=== PATIENT | female | born 1980 | race Hispanic/Latino ===

== ENCOUNTER 2018-06-19 21:01 | Emergency (ER) | payer BC ==
[2018-06-19] MEDS ORDERED: Ketorolac Tromethamine 30 MG/ML VIAL ONE (21:23)
--- NOTE | 2018-06-19 21:39 | RAD ---
2 views right shoulder: 06/19/2018 COMPARISON: None HISTORY: Injury, trauma, pain FINDINGS: There is no widening of the acromioclavicular or coracoclavicular interspace. No displaced fracture or evidence of dislocation is seen. IMPRESSION: No acute findings.
== END 2018-06-19 21:56 | disposition home or self-care (01) ==
LOC: SCSER 21:01
DX: M25.511 Pain in right shoulder (principal); M54.2 Cervicalgia
CPT/HCPCS: 96372; J1885

== ENCOUNTER 2018-12-26 16:24 | Emergency (ER) | payer BC ==
[2018-12-26 16:49] LABS: #Lymphocytes 1.3 thou/uL (1.20-3.40); #Monocytes 0.4 thou/uL (0.11-0.59); #Neutrophils 9.3 thou/uL (1.40-6.50); %Basophils 0.3 % (0.0-1.0); %Eosinophils 0.4 % (0.0-10.0); %Lymphocytes 11.8 % (21.0-51.0); %Monocytes 3.6 % (0.0-10.0); Hemoglobin 14.1 g/dL (12.0-16.0); Mean Corpuscular HGB CONC 33.3 g/dL (32.0-36.0); Mean Corpuscular Hemoglobin 27.9 pg (27.0-31.0); Mean Corpuscular Volume 83.7 fL (78.0-98.0); Mean Platelet Volume 7.2 fL (7.4-10.4); Platelet Count 376 thou/uL (130-400); RBC Distribution Width 11.6 % (11.5-14.5); Red Blood Cell (RBC) Count 5.04 mill/uL (4.20-5.40); White Blood Cell (WBC) Count 11.1 thou/uL (4.8-10.8)
[2018-12-26 17:16] LABS: ALT (SGPT) 45 U/L (8-55); AST (SGOT) 23 U/L (5-34); Albumin 4.7 g/dL (3.5-5.0); Alkaline Phosphatase 94 U/L (40-110); Anion Gap 13 mmol/L (10-20); BUN (Urea Nitrogen) 10 mg/dL (7.0-18.7); Bilirubin, Total 0.9 mg/dL (0.2-1.2); Calc. Creatinine Clearance 0 mL/min (70-130); Calcium 9.7 mg/dL (7.8-10.44); Carbon Dioxide 26 mmol/L (22-29); Chloride 100 mmol/L (98-107); Estimated GFR-MDRD 76; Globulin 4.2 g/dL (2.4-3.5); Glucose 189 mg/dL (70-105); Potassium 4.2 mmol/L (3.5-5.1); Protein, Total 8.9 g/dL (6.0-8.3); Sodium 135 mmol/L (136-145)
[2018-12-26 17:28] LABS: BHCG - Serum Negative (NEGATIVE); Pregs Control Background? CLEAR/WHITE (CLR/WHITE); Pregs Control Bar Appear? YES (CONTROL BAR)
[2018-12-26] MEDS ORDERED: Ondansetron PF 4 MG/2 ML Vial ONE (17:57)
[2018-12-26] MEDS ORDERED: Morphine 4 MG/ML VIAL ONE (17:57)
[2018-12-26 18:42] LABS: Bilirubin Negative (Negative); Blood, Urine Trace (Negative); Clarity Clear (Clear); Glucose, Urine (Dipstick) Normal (Negative); Leukocyte 500 Leu/uL (Negative); Nitrite Negative (Negative); Protein, Urine (Dipstick) 10 mg/dL (Neg-Trace); Urobilinogen Normal mg/dL (Less than 2)
[2018-12-26 18:48] LABS: Bacteria/HPF 1+ HPF (None Seen)
--- NOTE | 2018-12-26 18:50 | CT ---
CT OF THE ABDOMEN AND PELVIS WITH IV CONTRAST INDICATION: Left lower quadrant abdominal pain with diarrhea COMPARISON: None FINDINGS: ABDOMEN: Lung bases: There is a calcified granuloma within the right lower lobe. Liver: Diffuse fatty infiltration Gallbladder: Normal appearing. Pancreas: Normal. Adrenal glands: Normal. Spleen: Normal. Kidneys and ureters: There is cortical scarring with dilatation of the superior pole calyx of the lef t kidney. Right kidney is normal-appearing. Vasculature: There is mild atherosclerotic irregularity of the abdominal aorta without evidence of an eurysmal dilatation. Lymph nodes:No lymphadenopathy. Free fluid in abdomen:No free fluid is evident. PELVIS: Small and large bowel: There is prominent wall thickening involving the terminal ileum and distal ile um. The colon demonstrates some fluid density within the cecum, ascending colon and transverse colon. No overt colon wall thickening is evident. The descending colon, sigmoid colon and rectum are decompressed. Appendix:Not seen Bladder: Normal. Rectal and perirectal soft tissues:Decompressed Reproductive structures: Normal. Free fluid in pelvis: No free fluid is evident. Lymphadenopathy pelvis: No lymphadenopathy is evident. Osseous structures: No acute osseous abnormality. No destructive osteolytic or osteoblastic lesion i s identified. Soft tissues:Normal. IMPRESSION: 1. Distal and terminal ileitis. This can be infectious or inflammatory in etiology. Gastroenterology referral is recommended. No drainable fluid collection is evident. 2. Prominent fatty liver 3. Scarring of the superior pole of the left kidney may reflect sequela prior trauma or infection.
== END 2018-12-26 19:38 | disposition home or self-care (01) ==
LOC: ERS 16:24
DX: K52.9 Noninfective gastroenteritis and colitis, unspecified (principal); Z79.899 Other long term (current) drug therapy
CPT/HCPCS: 36415; 74177; 80053; 81003; 81015; 83605; 83690; 84703; 85025; 96361; 96374; 96375; J2270; J2405